=== PATIENT | male | born 1960 | race Caucasian/White ===

== ENCOUNTER 2017-01-16 10:25 | Day surgery (SDC) | payer OTHER ==
[~2017-01-16] VITALS: Ht 167.6 cm; Wt 85.9 kg
[~2017-01-16 10:25] MED LIST: FAMO-96 PO; TRAM50TA2 PO
[2017-01-16 12:17] VITALS: Ht 167.6 cm; Wt 85.9 kg
[2017-01-16 12:49] VITALS: BP 151/72; PULSE 58; RESP 18
[2017-01-16] MEDS ORDERED: PROPOFOL 40 ML ONE (14:08)
[2017-01-16] MEDS ORDERED: LIDOCAINE 2% (SDV) 5 ML INJ ONE (14:08)
--- NOTE | 2017-01-16 14:55 | OPPN ---
Date/Time of Note Date/Time of Note DATE: 01/16/17 TIME: 14:53 Proc Note GI Free Text/Dictation Preoperative Diagnosis: Dyspepsia Postoperative Diagnosis: * Moderate distal esophagitis * Erosive gastritis. Rule out H. pylori infection. Biopsies obtained * Otherwise normal EGD Plan: * PPI therapy i.e. omeprazole 40 mg daily * Review pathology as soon as available Procedure Performed: EGD with biopsies Surgeon: Yosef Reeves MD Tentering Machine Off Bearer: None Second Plumber Supervisor: None Anesthesia/Sedation: Monitored anesthesia care/Dr. Chow Tourniquet Time: NA Estimated Blood Loss: None Transfusion Required: No Specimens: Gastric body and antrum Grafts/Implants: None Tubes/Drains: NA Complications: None Pt. Condition Post Procedure: Stable Disposition: Home After informed consent, with the patient/relatives understanding the procedure, its indications, potential risks and complications, including but not limited to : allergic reaction, bleeding, perforation or infection, and after all pertinent questions were answered to the patients satisfaction, the patient/ relatives signed witnessed informed consent. Following this, premedication was administered slowly IV push under careful cardiovascular and respiratory monitoring with pulse oximetry, automatic blood pressure, and inorganic chemist. Once the sedative effect was achieved the patient was place in the left lateral decubitus, the panendoscope was introduced and advanced under visual control. Careful examination of the upper gastrointestinal tract, both on insertion as well as withdrawal of the instrument disclosing the following findings: Esophagus: the mucosa of the entire esophagus was carefully examined and showed the following findings: There is significant erythema and edema of the mucosa at the e.g. junction. Otherwise the mucosa appears within normal limits. There is no evidence of varices, neoplasm, or stricture. No Hiatal Hernia identified.] Stomach: Upon entrance to the stomach air was insufflated, the gastric leahy distended normally. The mucosa of the fundus, body and antrum of the stomach was carefully examined both head-on and on retroflexion, and showed the following findings: There is erythema, edema and multiple erosions in the body and antrum of the stomach. Biopsies were obtained to rule out H. pylori infection. Otherwise the mucosa appears within normal limits with no abnormalities. There is no evidence of ulcers or neoplasm.] Pylorus: The pylorus was carefully examined and showed the following findings: [ the pylorus appears patent and within normal limits, with no evidence of gastric outlet obstruction.] Duodenum: The duodenal mucosa was carefully examined in the duodenal bulb as well as the second portion of the duodenum and showed the following findings: [ the mucosa appears unremarkable with no evidence of duodenitis, ulcer or neoplasm.] Procedure date: Jan 16, 2017 YOSEF REEVES MD Jan 16, 2017 14:55
--- NOTE | 2017-01-16 15:01 | OPPN ---
Date/Time of Note Date/Time of Note DATE: 01/16/17 TIME: 14:55 Proc Note GI Free Text/Dictation Procedure Date: 01/16/2017 Preoperative Diagnosis: Colorectal cancer screening Postoperative Diagnosis: * 5 mm polyp sigmoid colon. Snared and retrieved * 8 mm polyp proximal ascending colon. Snared and retrieved * Multiple pale polyps in the rectum ablated * Moderate-sized internal hemorrhoids * Otherwise normal colonoscopy to cecum Plan: * Review pathology as soon as available * Annual Hemoccult stool testing * Surveillance colonoscopy in 5 years Procedure Performed: Colonoscopy with snare polypectomy Colonoscopy with polyp ablation Surgeon: Yosef Reeves MD Plodding Machine Operator: None Second Supply Technician: None Anesthesia/Sedation MAC/per anesthesiologist Dr. Chow Tourniquet Time: NA Estimated Blood Loss: 0 Transfusion Required: No Specimens: #1 sigmoid polyp #2 ascending colon polyp #3 rectum pale polyps Grafts/Implants: None Tubes/Drains: NA Complications: None Pt. Condition Post Procedure: Stable Disposition: Home After informed consent, with the patient/relatives understanding the procedure, its indications and potential risks and complications, including but not limited to: Allergic reaction, bleeding, perforation, infection, and after all pertinent questions were answered to the patient's satisfaction, the patient/ relatives signed the witnessed informed consent. Following this, premedication was administered slowly IV push under careful cardiovascular and respiratory monitoring with pulse OXIMETRY, automatic blood pressure, and compliance monitor. Once the sedative effect was achieved, the patient was placed in the left lateral decubitus position, digital rectal examination was performed. A colonoscope was then introduced and advanced under visual control throughout all segments of the colon including: [the rectum, sigmoid, descending colon, splenic flexure, transverse colon, hepatic flexure, ascending colon and finally reaching the cecum which was clearly identified by transillumination, finger indentation and the ileocecal valve.] Careful examination of the mucosa of the lower gastrointestinal tract both on insertion as well as withdrawal of the instrument disclosed the following findings: Preparation quality: [Adequate], Rectal Examination: The anorectal area was visualized examined and digital rectal examination performed with the following findings: [No evidence of perirectal disease, no masses.] Colonic mucosa: The mucosa of all segments of the colon was carefully examined and showed the following findings: There is a 5 mm polyp in the area of the sigmoid colon. The polyp was snared and retrieved. An 8 mm polyp was noted in the proximal ascending colon polyp was also snared and retrieved. The remainder colonic mucosa is unremarkable the ileocecal valve was clearly identified appears unremarkable. On withdrawal of the instrument several pale polyps likely hyperplastic were noted in the rectum several were ablated for histological examination. Moderate-sized internal hemorrhoids are noted to withdraw the instrument through the anal canal and on retroflexion. Otherwise the examined mucosa appears within normal limits. There is no evidence of inflammatory changes, diverticular formation, other neoplasms, vascular malformation, or any other abnormality.] The instrument was then withdrawn, the patient tolerated the procedure well and was transferred out of the Endoscopy Suite awake and in good condition to continue recovery under observation. Procedure date: Jan 16, 2017 YOSEF REEVES MD Jan 16, 2017 15:00
[2017-01-16 15:18] VITALS: BP 110/73; RESP 18
== END 2017-01-16 17:02 | disposition home or self-care (01) ==
LOC: GIL 10:25
PROVIDERS: ATTEND Internal Medicine Gastroenterology
DX: Z12.11 Encounter for screening for malignant neoplasm of colon (principal); D12.5 Benign neoplasm of sigmoid colon; D12.2 Benign neoplasm of ascending colon; D12.8 Benign neoplasm of rectum; K62.1 Rectal polyp; K64.8 Other hemorrhoids; K29.50 Unspecified chronic gastritis without bleeding; K20.9 Esophagitis, unspecified
CPT/HCPCS: 43239; 45380; 45385; Z7610